=== PATIENT | male | born 1970 | race African-American/Black ===

== ENCOUNTER 2020-10-27 10:17 | Inpatient (IN) | payer OTHER ==
[~2020-10-27] VITALS: Ht 170.2 cm; Wt 97.1 kg
[2020-10-27] MEDS ORDERED: CEFTRIAXONE 1 G PREMIX 50 ML IV ONE (10:30)
[2020-10-27] MEDS ORDERED: DEXAMETHASONE 10 MG/ML VIAL IM ONE (10:30)
[2020-10-27] MEDS ORDERED: AZITHROMYCIN 500 MG in DEXT 5% WATER 250 ML IV ONE (10:30)
[2020-10-27 10:56] LABS: HEMOGLOBIN. 16.3 g/dL (14.0-18.0); MEAN CORPUSCULAR HEMOGLOBIN 31.2 pg (28.0-32.0); MEAN CORPUSCULAR VOLUME 86.1 fL (80.0-94.0); MEAN PLATELET VOLUME 7.1 fl (7.4-10.4); PLATELET 350 x1000/uL (130-400); RED BLOOD CELL COUNT 5.22 mill/uL (4.7-6.1); RED CELL DISTRIBUTION WIDTH 12.6 % (11.6-14.6)
[2020-10-27 11:04] LABS: CHLORIDE 95 mEq/L (98-107)
[2020-10-27 11:14] LABS: FIBRINOGEN 841 mg/dL (200-400)
[2020-10-27 11:25] LABS: CREATINE KINASE 1444 IU/L (39-308)
[2020-10-27 11:41] LABS: D-DIMER > 35.20 mg/L FEU (<0.50)
[2020-10-27 12:09] LABS: PLATELET ESTIMATE NORMAL
[2020-10-27 12:20] LABS: CLARITY URINE CLEAR (CLEAR); COLOR URINE YELLOW (YELLOW); KETONES URINE NEGATIVE (NEGATIVE); LEUKOCYTE ESTERASE URINE NEGATIVE (NEGATIVE); NITRITE URINE NEGATIVE (NEGATIVE); OCCULT BLOOD URINE 2+ (NEGATIVE); PROTEIN URINE 2+ (NEGATIVE); SPECIFIC GRAVITY URINE 1.007 (1.005-1.030); UROBILINOGEN URINE 0.2 E.U./dL (0.2-1.0)
[2020-10-27] MEDS ORDERED: MAGNESIUM/ALUMINUM HYDROXIDE/SIMETHICONE 30ML UDC PO PRN (14:45)
[2020-10-27] MEDS ORDERED: ACETAMINOPHEN 325MG TABLET PO PRN ×2 (14:45)
[2020-10-27] MEDS ORDERED: CLONIDINE 0.1MG TABLET PO PRN (14:45)
[2020-10-27] MEDS ORDERED: ACETAMINOPHEN 650MG/20.3ML UDC GT PRN ×2 (14:45)
[2020-10-27] MEDS ORDERED: DOCUSATE SODIUM 100MG CAPSULE PO PRN (14:45)
[2020-10-27] MEDS ORDERED: HYDROCODONE/ACETAMINOPHEN 5/325MG TABLET PO PRN (14:45)
[2020-10-27] MEDS ORDERED: HYDROCODONE/ACETAMINOPHEN 10/325MG TABLET PO PRN (14:45)
[2020-10-27] MEDS ORDERED: ACETAMINOPHEN 650MG SUPP PR PRN ×2 (14:45)
[2020-10-27] MEDS ORDERED: ONDANSETRON HCL 4MG/2ML INJ IV PRN (14:45)
[2020-10-27] MEDS: ENOXAPARIN 30MG/0.3ML SYR SUBCUT SCH (15:26)
[2020-10-27 15:35] LABS: BG BASE EXCESS 1.7 mmol/L (-2.0-2.0); BG CARBOXYHEMOGLOBIN 0.3 % (0.5-1.5); BG DEOXYHEMOGLOBIN 3.9 % (0.0-5.0); BG FRACTION INSPIRED OXYGEN 100; BG HCO3 ACT 23.8 mmol/L (22.0-26.0); BG METHEMOGLOBIN 0.2 % (0.0-1.5); BG OXYGEN SATURATION 96.1 % (92.0-98.5); BG OXYHEMOGLOBIN 95.6 % (94.0-97.0); BG PCO2 30.9 mmHg (35.0-45.0); BG PH 7.504 (7.350-7.450); BG PO2 76.5 mmHg (75.0-100.0); BG SAMPLE SITE RIGHT BRACHIAL; BG TOTAL HEMOGLOBIN 16.5 g/dL (12.0-18.0); BG VENT MODE MASK - NRB
[2020-10-27] MEDS ORDERED: ALBUTEROL 6.7GM HFA INHALER ORI PRN (16:30)
[2020-10-27 16:45] VITALS: BP_SYST 122; BP_SYST 138; BP_DIAS 81
[2020-10-27 20:00] VITALS: BP 134/84
[2020-10-27] MEDS ORDERED: IOHEXOL-350 100 ML BOTTLE ONE (23:28)
[2020-10-28] VITALS: BP 125/74
[2020-10-28] MEDS: ENOXAPARIN 30MG/0.3ML SYR SUBCUT SCH ×2 (03:45→14:40)
[2020-10-28 04:00] VITALS: BP 128/84
[2020-10-28 06:40] LABS: HEMOGLOBIN. 15.4 g/dL (14.0-18.0); MEAN CORPUSCULAR HEMOGLOBIN 31.2 pg (28.0-32.0); MEAN CORPUSCULAR VOLUME 87.3 fL (80.0-94.0); MEAN PLATELET VOLUME 7.2 fl (7.4-10.4); PLATELET 363 x1000/uL (130-400); RED BLOOD CELL COUNT 4.92 mill/uL (4.7-6.1); RED CELL DISTRIBUTION WIDTH 12.8 % (11.6-14.6)
[2020-10-28 06:45] LABS: CHLORIDE 105 mEq/L (98-107)
[2020-10-28 06:56] LABS: LDL CHOLESTEROL 79 mg/dL (5-100)
[2020-10-28 06:58] LABS: HDL CHOLESTEROL 44 mg/dL (40-59)
[2020-10-28 08:00] VITALS: BP 108/70
[2020-10-28] MEDS: ZINC SULFATE 220 MG ( 50 ) CAPSULE PO SCH (08:02)
[2020-10-28] MEDS: ASCORBIC ACID 500 MG TABLET PO SCH (08:02)
[2020-10-28] MEDS: DEXAMETHASONE 10 MG/ML VIAL IV SCH (08:02)
[2020-10-28] MEDS: THIAMINE HCL 100MG TABLET PO SCH (08:03)
[2020-10-28] MEDS ORDERED: CEFTRIAXONE 1 G PREMIX 50 ML IV SCH (11:00)
[2020-10-28] MEDS ORDERED: AZITHROMYCIN 500 MG in DEXT 5% WATER 250 ML IV SCH (11:30)
[2020-10-28 12:00] VITALS: BP 113/72
[2020-10-28] MEDS: CEFTRIAXONE 1,000 MG in DEXTROSE 5% WATER 50 ML IV SCH (12:34)
[2020-10-28] MEDS: AZITHROMYCIN 500 MG in DEXT 5% WATER 250 ML IV SCH (14:40)
[2020-10-28 16:00] VITALS: BP 117/62
[2020-10-28 20:00] VITALS: BP 115/66
[2020-10-29] VITALS: BP 124/75
[2020-10-29 01:08] LABS: PLATELET ESTIMATE NORMAL
[2020-10-29] MEDS: GUAIFENESIN 200MG/10ML SUGAR FREE UDC PO PRN ×2 (01:45→08:16)
[2020-10-29] MEDS: ENOXAPARIN 30MG/0.3ML SYR SUBCUT SCH ×2 (03:47→15:06)
[2020-10-29 04:00] VITALS: BP 118/81
[2020-10-29 08:00] VITALS: BP 119/81
[2020-10-29] MEDS: ASCORBIC ACID 500 MG TABLET PO SCH (08:17)
[2020-10-29] MEDS: ZINC SULFATE 220 MG ( 50 ) CAPSULE PO SCH (08:17)
[2020-10-29] MEDS: DEXAMETHASONE 10 MG/ML VIAL IV SCH (08:17)
[2020-10-29] MEDS: THIAMINE HCL 100MG TABLET PO SCH (08:19)
[2020-10-29] MEDS: CEFTRIAXONE 1,000 MG in DEXTROSE 5% WATER 50 ML IV SCH (11:25)
[2020-10-29 11:40] VITALS: BP 118/89
[2020-10-29] MEDS: AZITHROMYCIN 500 MG in DEXT 5% WATER 250 ML IV SCH (13:43)
[2020-10-29 16:00] VITALS: BP 116/79
[2020-10-29 20:00] VITALS: BP 137/84
[2020-10-30] VITALS: BP 128/84
[2020-10-30] MEDS: ENOXAPARIN 30MG/0.3ML SYR SUBCUT SCH ×2 (03:20→14:23)
[2020-10-30 04:00] VITALS: BP 139/87
[2020-10-30] MEDS: GUAIFENESIN 200MG/10ML SUGAR FREE UDC PO PRN (05:59)
[2020-10-30 08:05] VITALS: BP 136/85
[2020-10-30] MEDS: DEXAMETHASONE 10 MG/ML VIAL IV SCH (08:28)
[2020-10-30] MEDS: THIAMINE HCL 100MG TABLET PO SCH (08:29)
[2020-10-30] MEDS: ASCORBIC ACID 500 MG TABLET PO SCH (08:29)
[2020-10-30] MEDS: AZITHROMYCIN 500 MG TABLET PO SCH (08:29)
[2020-10-30] MEDS: ZINC SULFATE 220 MG ( 50 ) CAPSULE PO SCH (08:29)
[2020-10-30] MEDS: CEFTRIAXONE 1,000 MG in DEXTROSE 5% WATER 50 ML IV SCH (11:49)
[2020-10-30 12:01] VITALS: BP 131/87
[2020-10-30] MEDS ORDERED: SODIUM CHLORIDE 45ML SPRAY NS PRN (14:00)
[2020-10-30] MEDS ORDERED: REMDESIVIR 200 MG in SODIUM CHLORIDE 0.9% 250 ML IV NR (15:30)
[2020-10-30 16:00] VITALS: BP 132/83
[2020-10-30 20:00] VITALS: BP 126/75
[2020-10-30 22:07] LABS: CHLORIDE 110 mEq/L (98-107)
[2020-10-31] VITALS: BP 132/83
[2020-10-31 04:00] VITALS: BP 128/84
[2020-10-31] MEDS: ENOXAPARIN 30MG/0.3ML SYR SUBCUT SCH ×2 (04:38→14:31)
[2020-10-31 06:57] LABS: CHLORIDE 108 mEq/L (98-107)
[2020-10-31 07:17] LABS: CREATINE KINASE 152 IU/L (39-308)
[2020-10-31 08:00] VITALS: BP 128/89
[2020-10-31] MEDS: ZINC SULFATE 220 MG ( 50 ) CAPSULE PO SCH (08:19)
[2020-10-31] MEDS: THIAMINE HCL 100MG TABLET PO SCH (08:19)
[2020-10-31] MEDS: ASCORBIC ACID 500 MG TABLET PO SCH (08:19)
[2020-10-31] MEDS: AZITHROMYCIN 500 MG TABLET PO SCH (08:19)
[2020-10-31] MEDS: DEXAMETHASONE 10 MG/ML VIAL IV SCH (08:19)
[2020-10-31 12:00] VITALS: BP 113/76
[2020-10-31] MEDS: CEFTRIAXONE 1,000 MG in DEXTROSE 5% WATER 50 ML IV SCH (12:35)
[2020-10-31] MEDS: REMDESIVIR 100 MG in SODIUM CHLORIDE 0.9% 250 ML IV SCH (14:31)
[2020-10-31] MEDS ORDERED: REMDESIVIR 100 MG in SODIUM CHLORIDE 0.9% 250 ML IV SCH (15:00)
[2020-10-31 16:00] VITALS: BP 122/86
[2020-10-31 19:42] VITALS: BP 119/77
[2020-11-01 00:05] VITALS: BP 121/79
[2020-11-01] MEDS: ENOXAPARIN 30MG/0.3ML SYR SUBCUT SCH ×2 (02:14→15:03)
[2020-11-01 04:00] VITALS: BP 126/80
[2020-11-01 07:04] LABS: CHLORIDE 108 mEq/L (98-107)
[2020-11-01 08:00] VITALS: BP 128/72
[2020-11-01] MEDS: ASCORBIC ACID 500 MG TABLET PO SCH (08:05)
[2020-11-01] MEDS: THIAMINE HCL 100MG TABLET PO SCH (08:05)
[2020-11-01] MEDS: ZINC SULFATE 220 MG ( 50 ) CAPSULE PO SCH (08:05)
[2020-11-01] MEDS: GUAIFENESIN 200MG/10ML SUGAR FREE UDC PO PRN (08:05)
[2020-11-01] MEDS: DEXAMETHASONE 10 MG/ML VIAL IV SCH (08:05)
[2020-11-01] MEDS: CEFTRIAXONE 1,000 MG in DEXTROSE 5% WATER 50 ML IV SCH (11:48)
[2020-11-01 12:00] VITALS: BP 123/86
[2020-11-01] MEDS: REMDESIVIR 100 MG in SODIUM CHLORIDE 0.9% 250 ML IV SCH (15:03)
[2020-11-01 15:57] VITALS: BP 126/77
[2020-11-01 20:00] VITALS: BP 119/80
[2020-11-02 00:16] VITALS: BP 124/79
[2020-11-02] MEDS: ENOXAPARIN 30MG/0.3ML SYR SUBCUT SCH ×3 (03:34→23:16)
[2020-11-02 04:00] VITALS: BP 122/76
[2020-11-02 08:00] VITALS: BP 129/79
[2020-11-02] MEDS: ASCORBIC ACID 500 MG TABLET PO SCH (08:35)
[2020-11-02] MEDS: DEXAMETHASONE 10 MG/ML VIAL IV SCH (08:35)
[2020-11-02] MEDS: THIAMINE HCL 100MG TABLET PO SCH (08:35)
[2020-11-02] MEDS: ZINC SULFATE 220 MG ( 50 ) CAPSULE PO SCH (08:35)
[2020-11-02 08:47] LABS: CHLORIDE 106 mEq/L (98-107)
[2020-11-02 11:48] VITALS: BP 111/80
[2020-11-02] MEDS: REMDESIVIR 100 MG in SODIUM CHLORIDE 0.9% 250 ML IV SCH (14:38)
[2020-11-02 16:00] VITALS: BP 106/79
[2020-11-02 20:00] VITALS: BP 113/72
[2020-11-03] VITALS: BP 116/73
[2020-11-03 04:00] VITALS: BP 110/72
[2020-11-03 07:12] LABS: CHLORIDE 106 mEq/L (98-107)
[2020-11-03 08:00] VITALS: BP 110/67
[2020-11-03] MEDS: ASCORBIC ACID 500 MG TABLET PO SCH (08:01)
[2020-11-03] MEDS: ZINC SULFATE 220 MG ( 50 ) CAPSULE PO SCH (08:02)
[2020-11-03] MEDS: GUAIFENESIN 200MG/10ML SUGAR FREE UDC PO PRN ×4 (08:02→21:39)
[2020-11-03] MEDS: ENOXAPARIN 30MG/0.3ML SYR SUBCUT SCH ×2 (08:02→20:22)
[2020-11-03] MEDS: DEXAMETHASONE 10 MG/ML VIAL IV SCH (08:02)
[2020-11-03] MEDS: THIAMINE HCL 100MG TABLET PO SCH (08:03)
[2020-11-03 12:00] VITALS: BP 107/75
[2020-11-03 13:22] LABS: CHLORIDE 105 mEq/L (98-107)
[2020-11-03 13:24] LABS: INR 1.1; PROTHROMBIN TIME 11.7 sec (9.6-11.0)
[2020-11-03 13:44] LABS: HEMATOCRIT. 47.1 % (42.0-52.0); HEMOGLOBIN. 16.6 g/dL (14.0-18.0); MEAN CORPUSCULAR HEMOGLOBIN 30.7 pg (28.0-32.0); MEAN PLATELET VOLUME 7.6 fl (7.4-10.4); PLATELET 350 x1000/uL (130-400); RED BLOOD CELL COUNT 5.42 mill/uL (4.7-6.1); RED CELL DISTRIBUTION WIDTH 12.8 % (11.6-14.6)
[2020-11-03 14:14] LABS: PLATELET ESTIMATE NORMAL
[2020-11-03] MEDS: REMDESIVIR 100 MG in SODIUM CHLORIDE 0.9% 250 ML IV SCH (15:14)
[2020-11-03 16:00] VITALS: BP 108/75
[2020-11-03 20:00] VITALS: BP 118/69
[2020-11-04] VITALS (21 sets, daily range): BP systolic 59–134; BP diastolic 14–95
[2020-11-04 01:33] LABS: BG BASE EXCESS -3.2 mmol/L (-2.0-2.0); BG CARBOXYHEMOGLOBIN 0.3 % (0.5-1.5); BG FRACTION INSPIRED OXYGEN 100; BG METHEMOGLOBIN 0.3 % (0.0-1.5); BG OXYGEN SATURATION 85.9 % (92.0-98.5); BG OXYHEMOGLOBIN 85.4 % (94.0-97.0); BG PCO2 25.1 mmHg (35.0-45.0); BG PH 7.474 (7.350-7.450); BG PO2 48.1 mmHg (75.0-100.0); BG SAMPLE SITE LEFT BRACHIAL; BG TOTAL HEMOGLOBIN 18.1 g/dL (12.0-18.0); BG VENT MODE HIGH FLOW
[2020-11-04] MEDS ORDERED: PROPOFOL 10MG/ML 100ML 100 ML IV PRN (03:30)
[2020-11-04] MEDS ORDERED: MORPHINE SULFATE 4 MG/ML CPJ (NOT FOR IM USE) IV NR (04:00)
[2020-11-04] MEDS ORDERED: MORPHINE SULFATE 2 MG/ML CPJ (NOT FOR IM USE) IV PRN (06:45)
[2020-11-04] MEDS: DEXAMETHASONE 10 MG/ML VIAL IV SCH (08:13)
[2020-11-04 08:45] LABS: HEMATOCRIT. 53.8 % (42.0-52.0); HEMOGLOBIN. 18.6 g/dL (14.0-18.0); MEAN CORPUSCULAR VOLUME 89.8 fL (80.0-94.0); RED BLOOD CELL COUNT 5.99 mill/uL (4.7-6.1); RED CELL DISTRIBUTION WIDTH 12.7 % (11.6-14.6)
[2020-11-04 08:54] LABS: CHLORIDE 107 mEq/L (98-107)
[2020-11-04] MEDS: THIAMINE HCL 100MG TABLET PO SCH (09:00)
[2020-11-04] MEDS: ASCORBIC ACID 500 MG TABLET PO SCH (09:00)
[2020-11-04] MEDS: ENOXAPARIN 30MG/0.3ML SYR SUBCUT SCH (09:00)
[2020-11-04] MEDS: ZINC SULFATE 220 MG ( 50 ) CAPSULE PO SCH (09:00)
[2020-11-04] MEDS ORDERED: PHENYLEPHRINE 100 MG in DEXT 5% WATER 240 ML IV PRN (09:15)
[2020-11-04] MEDS ORDERED: NOREPINEPHRINE 8MG/250ML PMX 250 ML IV PRN (09:15)
[2020-11-04] MEDS ORDERED: LIDOCAINE HCL 1% 20ML VIAL (Pyxis) INJ ONE (09:15)
[2020-11-04 09:19] LABS: BG BASE EXCESS -12.8 mmol/L (-2.0-2.0); BG CARBOXYHEMOGLOBIN 0.2 % (0.5-1.5); BG DEOXYHEMOGLOBIN 45.4 % (0.0-5.0); BG HCO3 ACT 15.5 mmol/L (22.0-26.0); BG METHEMOGLOBIN 0.3 % (0.0-1.5); BG OXYGEN SATURATION 54.4 % (92.0-98.5); BG OXYHEMOGLOBIN 54.1 % (94.0-97.0); BG PCO2 43.7 mmHg (35.0-45.0); BG PH 7.167 (7.350-7.450); BG PO2 35.5 mmHg (75.0-100.0); BG SAMPLE SITE LEFT BRACHIAL; BG TOTAL HEMOGLOBIN 19.5 g/dL (12.0-18.0); BG TOTAL RESPIRATORY RATE 47 b/min; BG VENT MODE MASK - BIPAP
[2020-11-04] MEDS ORDERED: NOREPINEPHRINE 8 MG in DEXTROSE 5% WATER 250 ML IV PRN (09:30)
[2020-11-04] MEDS ORDERED: SUCCINYLCHOLINE CHLORIDE 200MG/10ML IV ONE (09:44)
[2020-11-04] MEDS ORDERED: ETOMIDATE 2MG/ML 10ML VIAL IV ONE (09:44)
[2020-11-04] MEDS ORDERED: ATROPINE SULFATE 1MG/10ML SYR ONE (09:46)
[2020-11-04] MEDS ORDERED: EPINEPHRINE 0.1MG/ML (1:10,000) 10ML SYR ONE ×2 (09:46)
[2020-11-04] MEDS ORDERED: EPINEPHRINE 10 MG in SODIUM CHLORIDE 0.9% 240 ML IV PRN (10:15)
[2020-11-04] MEDS ORDERED: SODIUM BICARBONATE 8.4% 1 MEQ/ML 50ML SYR IV NR (10:20)
[2020-11-04] MEDS ORDERED: DOPAMINE 800MG PREMIX (DOUBLE) 250 ML IV PRN (10:30)
[2020-11-04 10:33] LABS: PLATELET ESTIMATE INCREASED
[2020-11-04 10:51] LABS: BG BASE EXCESS -12.8 mmol/L (-2.0-2.0); BG FRACTION INSPIRED OXYGEN 100; BG HCO3 ACT 19.9 mmol/L (22.0-26.0); BG PCO2 80.2 mmHg (35.0-45.0); BG PH 7.012 (7.350-7.450); BG PO2 33.8 mmHg (75.0-100.0); BG SAMPLE SITE RIGHT RADIAL; BG VENT MODE VENT - AC
[2020-11-04] MEDS ORDERED: SODIUM BICARBONATE 8.4% 1 MEQ/ML 50ML SYR IV ONE (11:07)
[2020-11-04] MEDS ORDERED: SODIUM BICARBONATE 150 MEQ in SODIUM CHLORIDE 0.45% 1,000 ML IV SCH (12:00)
== END 2020-11-04 11:12 | DRG 871 ==
LOC: ER 10:17 → 7WST 10:51 → EDBEDREQ 10:57 → EDBEDREQSVC 10:57 → ENRESERV 16:11 → 7WST 10-29 03:31 → MICUSO 11-04 03:42
PROVIDERS: ADMIT Family Medicine; ATTEND Family Medicine
PROC: 5A09357 Assistance with Respiratory Ventilation, Less than 24 Consecutive Hours, Continuous Positive Airway Pressure (ICD-10-PCS; principal; 2020-10-27)
PROC: 5A0935A Assistance with Respiratory Ventilation, Less than 24 Consecutive Hours, High Flow/Velocity Cannula (ICD-10-PCS; 2020-10-28)
PROC: XW033E5 Introduction of Remdesivir Anti-infective into Peripheral Vein, Percutaneous Approach, New Technology Group 5 (ICD-10-PCS; 2020-10-30)
PROC: 5A0945A Assistance with Respiratory Ventilation, 24-96 Consecutive Hours, High Flow/Velocity Cannula (ICD-10-PCS; 2020-10-31)
PROC: 5A09357 Assistance with Respiratory Ventilation, Less than 24 Consecutive Hours, Continuous Positive Airway Pressure (ICD-10-PCS; 2020-11-04)
PROC: 02HV33Z Insertion of Infusion Device into Superior Vena Cava, Percutaneous Approach (ICD-10-PCS; 2020-11-04)
PROC: B548ZZA Ultrasonography of Superior Vena Cava, Guidance (ICD-10-PCS; 2020-11-04)
PROC: 5A12012 Performance of Cardiac Output, Single, Manual (ICD-10-PCS; 2020-11-04)
PROC: 0BH17EZ Insertion of Endotracheal Airway into Trachea, Via Natural or Artificial Opening (ICD-10-PCS; 2020-11-04)
PROC: 5A1935Z Respiratory Ventilation, Less than 24 Consecutive Hours (ICD-10-PCS; 2020-11-04)
DX: A41.89 Other specified sepsis (principal); U07.1 COVID-19; J96.01 Acute respiratory failure with hypoxia; J12.82 Pneumonia due to coronavirus disease 2019; E44.1 Mild protein-calorie malnutrition; E87.1 Hypo-osmolality and hyponatremia; M62.82 Rhabdomyolysis; E86.1 Hypovolemia; K76.0 Fatty (change of) liver, not elsewhere classified; Z79.01 Long term (current) use of anticoagulants; R73.9 Hyperglycemia, unspecified; I46.9 Cardiac arrest, cause unspecified; I95.9 Hypotension, unspecified; Z90.49 Acquired absence of other specified parts of digestive tract; Z68.33 Body mass index [BMI] 33.0-33.9, adult
CPT/HCPCS: 31500; 36415; 36600; 71045; 71275; 76937; 80053; 80061; 81003; 82375; 82550; 82728; 82805; 83605; 83615; 83880; 84145; 84484; 85025; 85379; 85384; 86140; 93005; 94002; 94660; 99291; C1725; J0330; J0456; J0461; J0696; J1100; J1650; J2270; J3490; J7050; J7060; Q9957; Q9967; U0003; U0005; A4315